=== PATIENT | female | born 1955 | race Caucasian/White ===

== ENCOUNTER 2020-07-20 14:29 | Outpatient (CLI) | payer MEDICARE, SELFPAY ==
--- NOTE | ~2020-07-20 | MM_ITS ---
EXAMINATION: MM screening sheron BI w gabrielle HISTORY: Screening mammogram TECHNIQUE: Craniocaudal and mediolateral oblique 3-D tomosynthesis images were obtained and synthetic 2-D images were generated. CAD analysis was submitted and interpreted. COMPARISON: 09/10/2017 bilateral screening, 03/18/2016 right diagnostic, and 03/12/2016 bilateral digit al screening mammogram examinations BREAST PARENCHYMAL COMPOSITION: There are scattered areas of fibroglandular density. FINDINGS: There is no evidence of suspicious mass, calcification, or architectural distortion to sugg est malignancy in either breast. There has been no suspicious interval change. IMPRESSION: 1. No mammographic evidence of malignancy. 2. Recommend routine screening mammography in one year. BI-RADS Category 1: Negative Reviewed, dictated and finalized at location A.
--- NOTE | ~2020-07-20 | DEXA_ITS ---
Bone Density Report Name: Rachel Phelps Age: 64 Sex: Female Ethnicity: White Date of : 1955 Indication: postmenopausal; prior fracture; Referring Provider: CINTIA SCHOFIELD Study: Bone densitometry was performed. Exam Date: July 20, 2020 Accession number: [id number] Bone Density: Region BMD T-score Z-score Classification AP Spine (L1-L4) 1.019 -0.3 1.6 Normal Femoral Neck (Left) 0.687 -1.5 0.1 Osteopenia Total Hip (Left) 0.845 -0.8 0.5 Normal Total Hip Bilateral Avg 0.818 -1.0 0.3 Osteopenia Femoral Neck (Right) 0.687 -1.5 0.1 Osteopenia Total Hip (Right) 0.790 -1.2 0.0 Osteopenia World Health Organization criteria for BMD impression classify patients as: Normal (T-score at or above -1.0), Osteopenia (T-score between -1.0 and -2.5), or Osteoporosis (T-score at or below -2.5). 10-year Fracture Risk(1): Major Osteoporotic Fracture 14% Hip Fracture 1.4% Reported Risk Factors: [place] (), Neck BMD=0.687, BMI=32.3, previous fracture (1) FRAX(R) Version 3.08. Fracture probability calculated for an untreated patient. Fracture probability may be lower if the patient has received treatment. Clinical Information Provided by Patient: Has had a low trauma fracture Has used the following medications: Vitamin D, Calcium Patient maximum height was 66 Menopause Age: 49 No regular weight bearing exercise Drinks caffeinated beverages Onset of menses at age 13 Number of children 2 Impression: The patient has low bone mass, based on the Left Femoral Neck T-score. The patient has an estimated ten-year risk of hip fracture of 1.4% and an estimated ten-year risk of major fracture of 14%, based on the WHO FRAX algorithm. The patient has risk factors, including: previous fracture. Discussion: BONE DENSITY IS LOW AT ONE OR MORE SKELETAL SITES. This patient's lowest T-score is low at one or more skeletal sites. It meets the World Health Organization's (WHO) criteria for ?low bone mass? (T-score between -1.0 and -2.5). The patient's 10-year risk of fracture as calculated by FRAX is less than the threshold where pharmacological therapy is recommended by the National Osteoporosis Foundation (NOF). However, all treatment decisions require clinical judgment and consideration of individual patient factors, including patient preferences, comorbidities, previous drug use, risk factors not captured in the FRAX model (e.g., frailty, falls, vitamin D deficiency, increased bone turnover, interval significant decline in bone density) and possible under or overestimation of fracture risk by FRAX. The patient should follow a healthful lifestyle (good nutrition with adequate calcium and vitamin D, and appropriate weight-bearing exercise). Follow-Up: Consider repeating this study in 2 to 3 years to reassess this patient's sta
== END 2020-07-20 14:30 | disposition home or self-care (01) ==
PROVIDERS: PCP Family Medicine; Visit Provider Family Medicine
DX: Z12.31 Encounter for screening mammogram for malignant neoplasm of breast (principal); Z78.0 Asymptomatic menopausal state; M85.852 Other specified disorders of bone density and structure, left thigh; M85.851 Other specified disorders of bone density and structure, right thigh
CPT/HCPCS: 77063; 77067; 77080

== ENCOUNTER 2023-11-17 12:30 | Outpatient (RCR) | payer MEDICARE, SELFPAY ==
--- NOTE | 2023-10-30 13:30 | OPREHPOC ---
Outpatient Therapy Plan of Care This is a Multidisciplinary Plan of Care that may contain components documented by all disciplines (PT, OT, and ST.) PT Problem 1 PT Problem #1 Knowledge Deficit PT Goal 1 Goal * pt and indep with HEP * demonstrate correct technique with sit to/from stand transfer PT Problem 2 PT Problem #2 Impaired Strength PT Goal 1 Goal increase strength of R and L LE to improve transfer and gait skills: 1* in sitting pt perform 20 reps of exercises 2* sit to/from stand indep from her w/c PT Problem 3 PT Problem #3 Impaired Functional Mobil PT Goal 1 Goal 1* pt ambulate with wheeled walker, indep on level surface, 100' 2* pt stand without UE support x 30 seconds
--- NOTE | 2023-10-30 13:30 | PTOPEVAL1 ---
Assessment and note entered by Yolis Devine, PT Evaluation Information Assessment Status Evaluation Diagnosis gait abnormality, imbalance Subjective Information had one fall when getting out of the shower tub, was assisting her and mat slipped; use wheeled walker for short, in home distances; use w/c in community, but not in house; do not do any leg exercises; daily use the home intermittent compression pump for leg lymphedema; ACTIVITY: Gene does all home tasks; assist with bathing, dressing pt; have stair lift for basement stairs; GOAL: have better balance with standing up from chair and walk better Reported Pain Level Pain Score Self Report Additional Pain Score Comments take arthritis med for knees; R more pain than L knee; range of 0-3/10; Assessment PT Clinical Summary Rachel has the diagnosis of gait abnormality. Her memory is decreased with dementia. is supportive and assists pt at home with self care and he does home tasks. She attended adult day care 2 days/week. And has been needing more assist with getting up from chairs. In home is walking with the wheeled walker and manual w/c for community outings. With the evaluation: weakness of both LE's, poor sit to stand transfer with assistance required, maximum walking distance of 30'. Skilled PT services are indicated for therapeutic exercises to increase LE strength, standing balance, sit to stand transfer and gait skills, to improve her mobility and decrease care required from her . Pain in her R knee limited the R LE exercises. Plan of Care Interventions Gait Training,Neuro Re-education,Patient/Caregiver Education,Therapeutic Activities,Therapeutic Exercise PT Services Indicated Yes Treatment Frequency and 2x/wk for 4 weeks Duration These treatments will address the objective and functional deficits as defined above. The patient will be advanced safely and appropriately in order for the patient to progress towards his/her prior level of function. Additional exercises vianey
--- NOTE | 2023-11-20 12:07 | PCPTNOTE ---
Patient cancelled today's session secondary to illness.
--- NOTE | 2023-11-24 11:28 | PCPTNOTE ---
Pt cancelled today due to illness.
--- NOTE | 2023-12-02 12:00 | PTOPDC ---
Assessment and note entered by Yolis Devine, PT Discharge Information Assessment PT Clinical Summary Rachel has received 5 PT sessions, from Oct 30 to , had 2 call/cancel, then stopped attending therapy. She will be discharged at this time. The goals were not addressed. Plan of Care PT Services Indicated No
== END 2023-12-02 13:29 | disposition home or self-care (01) ==
LOC: ANHPT 12:30
PROVIDERS: PCP Family Medicine; Visit Provider Nurse Practitioner Family
DX: R41.3 Other amnesia (principal); R26.9 Unspecified abnormalities of gait and mobility
CPT/HCPCS: 97110; 97116; 97161; 97530

== ENCOUNTER 2024-07-08 12:18 | Outpatient (CLI) | payer MEDICARE, SELFPAY ==
--- NOTE | ~2024-07-08 | DEXA_ITS ---
Bone Density Report Name: NATASHA MANZANARES Age: 68 Sex: Female Ethnicity: White Date of : 1955 Indication: postmenopausal; screening for osteoporosis; Referring Provider: CINTIA SCHOFIELD Study: Bone densitometry was performed. Exam Date: July 08, 2024 Accession number: [id number] Bone Density: Region BMD T-score Z-score Classification AP Spine(L1-L4) 1.006 -0.4 1.7 Normal Femoral Neck (Left) 0.635 -1.9 -0.1 Osteopenia Total Hip (Left) 0.939 0.0 1.5 Normal Femoral Neck (Right) 0.701 -1.3 0.5 Osteopenia Total Hip (Right) 0.938 0.0 1.5 Normal Total Hip Mean 0.939 0.0 1.5 Normal World Health Organization criteria for BMD impression classify patients as: Normal (T-score at or above -1.0), Osteopenia (T-score between -1.0 and -2.5), or Osteoporosis (T-score at or below -2.5). 10-year Fracture Risk(1): Major Osteoporotic Fracture 10% Hip Fracture 1.8% Reported Risk Factors: [place] (), Neck BMD=0.635, BMI=38.3 (1) FRAX(R) Version 3.08. Fracture probability calculated for an untreated patient. Fracture probability may be lower if the patient has received treatment. Clinical Information Provided by Patient: Has used the following medications: Vitamin D, Calcium Patient maximum height was 66 Menopause Age: 49 Onset of menses at age 11 Number of children 2 Impression: The patient has low bone mass, based on the Left Femoral Neck T-score. The patient has an estimated ten-year risk of hip fracture of 1.8% and an estimated ten-year risk of major fracture of 10%, based on the WHO FRAX algorithm. Discussion: BONE DENSITY IS LOW AT ONE OR MORE SKELETAL SITES. This patient's lowest T-score is low at one or more skeletal sites. It meets the World Health Organization's (WHO) criteria for ?low bone mass? (T-score between -1.0 and -2.5). The patient's 10-year risk of fracture as calculated by FRAX is less than the threshold where pharmacological therapy is recommended by the National Osteoporosis Foundation (NOF). However, all treatment decisions require clinical judgment and consideration of individual patient factors, including patient preferences, comorbidities, previous drug use, risk factors not captured in the FRAX model (e.g., frailty, falls, vitamin D deficiency, increased bone turnover, interval significant decline in bone density) and possible under or overestimation of fracture risk by FRAX. The patient should follow a healthful lifestyle (good nutrition with adequate calcium and vitamin D, and appropriate weight-bearing exercise). Follow-Up: Consider repeating this study in 2 to 3 years to reassess this patient's status, or sooner if there is some new clinical indication. Reported by: LESA on 07/08/2024 1:03:00 PM.
--- NOTE | ~2024-07-08 | MM_ITS ---
EXAMINATION: MM screening sheron BI w gabrielle HISTORY: Screening TECHNIQUE: Craniocaudal and mediolateral oblique 3-D tomosynthesis images were obtained and synthetic 2-D images were generated. CAD analysis was submitted and interpreted. COMPARISON: Comparison to multiple prior studies sequentially, with oldest reviewed study dated 08/30. BREAST PARENCHYMAL COMPOSITION: Not dense: There are scattered areas of fibroglandular density. FINDINGS: There is no evidence of suspicious mass, calcification, or architectural distortion to sugg est malignancy in either breast. There has been no suspicious interval change. IMPRESSION: 1. No mammographic evidence of malignancy. 2. Recommend routine screening mammography in one year. BI-RADS Category 1: Negative Reviewed, dictated and finalized at location B.
== END 2024-07-08 12:19 | disposition home or self-care (01) ==
LOC: ANHIMG 12:23
PROVIDERS: PCP Family Medicine; Visit Provider Family Medicine
DX: Z12.31 Encounter for screening mammogram for malignant neoplasm of breast (principal); Z78.0 Asymptomatic menopausal state; M85.852 Other specified disorders of bone density and structure, left thigh; M85.851 Other specified disorders of bone density and structure, right thigh
CPT/HCPCS: 77063; 77067; 77080

== ENCOUNTER 2025-03-07 12:46 | Outpatient (CLI) | payer MEDICARE, SELFPAY ==
--- NOTE | ~2025-03-07 | MR_ITS ---
EXAMINATION: MR brain/brain stem wo/w con DATE: 03/07/2025 14:07 INDICATION: Brain lesion TECHNIQUE: Magnetic resonance imaging (MRI) of the brain and brainstem was performed without and with 20 mL Multihance intravenous contrast. Sequences included sagittal and axial T1-weighted SE, axial d iffusion-weighted FS SE, axial 3D SWAN, axial T2-weighted FLAIR, and axial T2-weighted FSE. Postcontr ast axial and coronal T1-weighted SE was obtained. Apparent diffusion coefficient (ADC) maps were cre ated. COMPARISON: 08/12/2016 FINDINGS: There are no areas of restricted diffusion to suggest acute infarction. No intracranial hemorrhage. T here is an 8 x 6 x 7 mm enhancing lesion posterior to the left cerebellar hemisphere which appears ex tra-axial. There is underlying thickening of the low signal intensity calvarium immediately underlyin g the enhancing lesion. The cortical thickening can be seen dating back to CT dated 12/29/2014 althoug h no evident enhancing lesion is discernible at that time. No other abnormal masses or abnormally enh ancing lesions identified. There are no intraparenchymal signal abnormalities seen on the other pulse sequences. The ventricles are symmetric and normal in size. There are no abnormal extra-axial fluid collections. Flow voids are seen in the cerebral arteries on the T2-weighted sequences consistent wit h their expected patency. Visualized orbits and soft tissues are unremarkable. Mild mucosal thickenin g the bilateral ethmoid sinuses. IMPRESSION: 1. 8 x 6 x 7 mm enhancing lesion which appears extra-axial posterior to the left cerebral hemisphere and with focal thickening of the immediately underlying calvarium which appears chronic suggest this most likely represents a meningioma. Differential would include metastatic disease in the appropriate uncal setting. Could consider further evaluation with pre and postcontrast CT to assess for any asso ciated calcification which if present would provide further confidence in meningioma. Reviewed, dictated and finalized at location B. IMPRESSION: 1. 8 x 6 x 7 mm enhancing lesion which appears extra-axial posterior to the lef t cerebral hemisphere and with focal thickening of the immediately underlying c alvarium which appears chronic suggest this most likely represents a meningioma . Differential would include metastatic disease in the appropriate uncal settin g. Could consider further evaluation with pre and postcontrast CT to assess for any associated calcification which if present would provide further confidence in meningioma.
--- OUTSIDE RECORDS SUMMARY | 2025-03-07 14:03 | XMS_ITS | Referral Summary ---
Author Organization [facility] Address [address] [place] [address] Care Team Providers Care Shellac Polisher Name Role Phone Carol Mehta MD Primary Care Provider Encounters Date Type Department Care Team Description 01/19/2025 Orders Only [facility] Neurosurgery [address] [facility] [address] [place] [address] Lucia Queen, MARIANNA Brain lesion (Primary Dx) 01/18/2025 Telephone [facility] Scheduling [address] [place] [address] Luz Layton from Last 3 Months Allergies Active Allergy Reactions Criticality Noted Date Comments Amlodipine Unknown Lisinopril Unknown Metoprolol Unknown Tetanus Vaccines And Toxoid Unknown 08/09/20 21 Medications lansoprazole (PREVACID) 30 mg capsule take 1 capsule (30MG) by oral route every day before a meal 0 1 Active oxymetazoline (NASAL SPRAY 12 HOUR) 0.05 % nasal spray spray 2 spray by intranasal route 2 times every day in each nostril in the morning and evening 0 1 Active cloNIDine (CATAPRES) 0.1 mg tablet take 1 tablet (0.1MG) by oral route 2 times every day 0 2 Active mirtazapine (REMERON) 15 mg tablet TAKE 1/2 TABLET AT BEDTIME. Active vitamin B complex (SUPER B-50 COMPLEX ORAL) daily Active cholecalciferol (VITAMIN D-3) 25 mcg (1,000 unit) tablet take 1 tablet daily Active atorvastatin (LIPITOR) 10 mg tablet Take 1 tablet (10 mg total) by mouth daily 1 Active cyanocobalamin, vitamin B-12, 1,000 mcg tablet extended release take 1 tablet daily Active folic acid (FOLVITE) 1 mg tablet Take 1 tablet (1,000 mcg total) by mouth daily 1 Active ry-phkntfw-kmm- iron fm-FA-vitK (Multi For Her) 18 mg iron-600 mcg-80 mcg tablet daily Active spironolactone (ALDACTONE) 25 mg tablet Take 1 tablet (25 mg total) by mouth daily 1 Active thiamine (VITAMIN B1) 100 mg tablet takes 250mg per day Active Bystolic 5 mg tablet Take 1 tablet (5 mg total) by mouth daily 1 Active zolpidem CR (AMBIEN CR) 12.5 mg CR tablet TAKE 1 TABLET BY MOUTH AT BEDTIME NEEDED FOR INSOMNIA 1 Active busPIRone (BUSPAR) 5 mg tabletIndicatio ns:Generalized Anxiety Disorder Take 1 tablet (5 mg total) by mouth 3 (three) times a day Active calcium carbonate (CALCIUM 600 ORAL) Take by mouth Active celecoxib (CeleBREX) 100 mg capsule Take 1 capsule by mouth twice daily 60 capsule 3 Active donepeziL (ARICEPT) 5 mg tablet Take 1 tablet by mouth once daily with breakfast 30 tablet 4 4 Active escitalopram (LEXAPRO) 5 mg tablet Take 1 tablet (5 mg total) by mouth daily 30 tablet 6 5 Active fluticasone propionate (FLONASE) 50 mcg/actuation nasal spray SHAKE LIQUID AND USE 1 SPRAY IN EACH NOSTRIL TWICE DAILY 4 Active Active Problems Problem Noted Date Diagnosed Date Memory loss or impairment 12/30/2021 Assessment & Plan (05/23/2024 1:28 PM CDT): Continue mirtazapine/Remeron 15 mg and escitalopram/Lexapro at 5 mg. Encouraged patient to keep attending [facility] for socialization. Continue donepezil/Aricept 5 mg. Referral for [facility]. Follow-up in 6 months or sooner if need be. Assessment & Plan (12/30/2021 3:14 PM TARP REPAIRER): Stable memory testing from 2017. Low concern for AD. More likely multifactorial: polypharmacy, mood disorder. Check bMRI 3D to compare vs. 2018 Check TSH, B12 Change Sertraline 50mg to AM. Would benefit from higher dose and then could possibly discontinue buspirone and Ambien CR (having parasomnias). Recommend referral to Psychiatrist to evaluate and treat possible anxiety, depression. Pt is amotivational with I/ADLs. 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 Deficiency of other specified B group vitamins 0 04/03/2016 Other visual disturbances 04/03/2016 Other forms of nystagmus 04/03/2016 Uncomplicated alcohol dependence 04/03/2016 Immunizations Immunization Administration Dates Next Due Influenza, Quad, Adjuvantated, Intramuscular 06/2020 Influenza, Quadrivalent, Spl it, Preservative Free, Intramuscular 08/30/2018 Influenza, Trivalent, High D ose, Split, Preservative Free, Intramuscular 10/22/2019 Influenza, Trivalent, IM (MDV) 01/16/2014 Influenza, Unspecified 01/14/2016 Pneumococcal Conjugate PCV 13 06/25/2020, 016 Social History Tobacco Use Types Packs/Day Years Used Date Smoking Tobacco: Never Smokeless Tobacco: Never Tobacco Cessation:Counseling Given: Not Answered Alcohol Use Standard Drinks/Week Comments Yes 0 (1 standard drink = 0.6 oz pur e alcohol) AUDIT-C Answer Date Recorded Q1: How often do you have a drink containing alcohol? Never 10/20/2023 Q2: How many drinks containi ng alcohol do you have on a typical day when you are drinking? Patient does not drink Q3: How often do you have si x or more drinks on one occasion? Never 10/20/2023 Comments Unknown Sex and Gender Information Value Date Recorded Sex Assigned at Not on file Legal Sex Female 1:20 AM TARP REPAIRER Gender Identity Not on file Sexual Orientation Not on file Occupation Industry Job Start Date Job End Date RETIRED Not on file Not on file Not on file Last Filed Vital Signs Vital Sign Reading Time Taken Comments Blood Pressure 108/68 05/23/2024 12:47 PM CDT Pulse 75 05/23/2024 12:47 PM CDT Temperature 36.6 C (97.8 F) 05/23/2024 12:47 PM CDT Respiratory Rate - - Oxygen Saturation 93% 05/23/2024 12:47 PM CDT Inhaled Oxygen Concentration - - Weight 107 kg (236 lb) 05/23/2024 12:47 PM CDT Height 167.6 cm (5' 6 ) 05/23/2024 12:47 PM CDT Body Mass Index 38.09 05/23/2024 12:47 PM CDT Plan of Treatment Not on file Insurance [address] [id number] [facility] MEDICARE ADVANTAGE [facility] MDCR HMO REF UHC MEDICARE ADVANTAGE Care Teams Shellac Polisher Relationship Specialty Start Date End Date Carol Mehta MD PCP - General 05/18/17
--- OUTSIDE RECORDS SUMMARY | 2025-03-07 14:03 | XMS_ITS | Clinical Summary ---
Author Organization [facility] Address [address] [place] [address] Care Team Providers Care Oil Heater Installer Name Role Phone Carol Mehta MD Primary Care Provider [phone] Allergies Active Allergy Reactions Criticality Noted Date [...] mcg total) by mouth daily 1 Active cb-rdewlwn-ydh- iron fm-FA-vitK (Multi For Her) 18 mg [...] 5 mg. Encouraged patient to keep attending [facility] for socialization. Continue donepezil/Aricept 5 mg. Referral for [facility]. Follow-up in 6 months or sooner if need be. Assessment & Plan (12/30/2021 3:14 PM MOOSE HUNTER): Stable memory testing from 2017. Low concern [...] of nystagmus 04/03/2016 Uncomplicated alcohol dependence 04/03/2016 Encounters Date Type Department Care Team Description 01/19/2025 Orders Only [facility] Neurosurgery [address] [facility] [address] [place] [address] Lucia Queen NP Brain lesion (Primary Dx) 01/18/2025 Telephone [facility] Scheduling [address] [place] [address] Luz Layton from Last 3 Months Immunizations Immunization Administration Dates Next Due Influenza, Quad, Adjuvantated, Intramuscular 06/2020 Influenza, Quadrivalent, Spl it, Preservative Free, Intramuscular 08/30/2018 Influenza, Trivalent, High D ose, Split, Preservative Free, Intramuscular 10/22/2019 Influenza, Trivalent, IM (MDV) 01/16/2014 Influenza, Unspecified 01/14/2016 Pneumococcal Conjugate PCV 13 06/25/2020, 016 Surgical History Surgery Date Site/Laterality Comments SECTION 11/30/1978 - 11/29/1979 ANKLE SURGERY 11/30/1998 - 11/29/1999 Medical History Medical History Date Comments Hypertension Hypertension Adiposity Obesity Hx Other Medical Pulmonary Hyper tension Hx Other Medical Sleep Apnea, CP AP Lymphedema Osteoarthritis Bursitis of right knee HLD (hyperlipidemia) IBS (irritable bowel syndrome) Anxiety Sleep apnea Obesity Fibromyalgia Scleroderma (HCC) H/O alcohol abuse Last drink 01/29 016 Spondylosis defect, noted 1978 Arthritis History of transfusion Family History Medical History Relation Name Comments Stroke Father Parkinsonism Paternal Grandfather Relation Name Status Comments Father Paternal Grandfather Social History Tobacco Use Types Packs/Day Years [...] on file Legal Sex Female 1:20 AM MOOSE HUNTER Gender Identity Not on file Sexual Orientation Not on file Occupation Industry Job Start Date Job End Date RETIRED Not on file Not on file Not on file Obstetrics History Last Filed Vital Signs Vital Sign Reading [...] 05/23/2024 12:47 PM CDT Plan of Treatment Health Maintenance Due Date Last Done Comments Breast Cancer Screening-Mammogram 1955 Colon Cancer Screening-Colonoscopy 1955 Depression Screening 1955 Fall Risk Assessment 1955 Hepatitis C Screening 1955 Osteoporosis Screening-Bone Density Scan 1955 DTaP/Tdap/Td Vaccine (1 - Tdap) 1965 Hepatitis B Screening 1972 Zoster Vaccine (1 of 2) 2004 Well Visit 65+ 2019 Pneumococcal vaccine 65+ (2 of 2 - PPSV23) 06/25/2021 06/25/2020, 01/15/2016 Covid-19 Vaccine (3 - 2023-2 5 season) 2024 02/23/2021, 01/26/2021 Influenza Vaccine (Season Ended) 2025 09/06/2020, 10/22/2019, 08/30/2018, Additional history exists Insurance UHC MEDICARE ADVANTAGE [facility] Address: [place] [id number] [place] [address] [place] [address] [facility] MDCR HMO REF [facility] Address: [place] [address] UHC MEDICARE ADVANTAGE Care Teams Oil Heater Installer Relationship Specialty Start Date End Date Carol Mehta MD PCP - General 05/18/17
--- OUTSIDE RECORDS SUMMARY | 2025-03-07 14:03 | XMS_ITS | Clinical Summary ---
Author Organization [facility] Address [address] [place] [address] Care Team Providers Care Manager Employee Benefits Name Role Phone Unavailable Primary Care Provider Unavailabl e Social History Tobacco Use Types Packs/Day Years Used Date Smoking Tobacco: Never Assessed Comments Unknown Sex and Gender Information Value Date Recorded Sex Assigned at Not on file Legal Sex Female 8:03 PM CDT Gender Identity Not on file Sexual Orientation Not on file Plan of Treatment Health Maintenance Due Date Last Done Comments Colorectal Cancer Screening Colonoscopy (10 Years) 1955 Hepatitis C 1972 DTaP, Tdap and Td Vaccines ( 1 - Tdap) 1973 Mammogram Screening 1994 Zoster Vaccines (1 of 2) 2004 Dexa Scan (General) 2019 Pneumococcal Vaccine: 65+ Ye ars (1 of 1 - PCV) 2019 COVID-19 Vaccine (2023-2 5 season) 2024 RSV Immunization or 60+ Years (1 - 1-dose 75+ series) 2029 Meningococcal B Vaccine Aged Out No l onger eligible based on patient's age to complete this topic Meningococcal Vaccine Aged Out No valentin stevan eligible based on patient's age to complete this topic RSV Immunizations Under 20 Months Aged Out No longer eligible based on patient's age to complete this topic Advance Directives Documents on File Type Date Recorded 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
== END 2025-03-07 12:47 | disposition home or self-care (01) ==
PROVIDERS: PCP Family Medicine; Visit Provider Nurse Practitioner Adult Health
DX: G93.9 Disorder of brain, unspecified (principal); R93.0 Abnormal findings on diagnostic imaging of skull and head, not elsewhere classified
CPT/HCPCS: 70553; A9579